=== PATIENT | male | born 2000 | race Hispanic/Latino ===

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

== ENCOUNTER 2021-03-29 22:01 | Emergency (ER) | payer BC, OTHER ==
[~2021-03-29] VITALS: Ht 170.2 cm; Wt 74.8 kg
[~2021-03-29 22:01] MED LIST changes: +AMOX-429 PO; +CIPOTIC AD
[2021-03-30 01:04] LABS: BASOPHILS % (AUTO) 0.7 % (0.0-5.0); EOSINOPHILS % (AUTO) 2.6 % (0.0-8.0); HEMATOCRIT 43.4 % (42-54); LYMPHOCYTES % (AUTO) 40.4 % (21.0-51.0); MEAN CORPUSCULAR HEMOGLOBIN 29.6 pg (27.0-33.0); MEAN CORPUSCULAR HGB CONC 33.6 g/dL (32.0-36.0); MEAN CORPUSCULAR VOLUME 87.9 fL (80-100); MONOCYTES % (AUTO) 7.1 % (3.0-13.0); PLATELET COUNT (AUTO) 244 K/uL (130-400); RED BLOOD CELL COUNT(AUTO) 4.94 MIL/uL (4.50-6.20); WHITE BLOOD COUNT (AUTO) 9.5 K/uL (4.8-10.8)
[2021-03-30 01:17] LABS: CREATININE 1.4 mg/dL (0.5-1.5)
[2021-03-30 01:22] LABS: ALBUMIN 4.1 g/dL (3.5-5.0); BILIRUBIN,TOTAL 0.2 mg/dL (0.2-1.0); TOTAL PROTEIN, SERUM 7.7 g/dL (6.0-8.3)
[2021-03-30] MEDS ORDERED: 0.9% NACL 500ML IV.SOLN 500 ML IV ONE ×2 (01:30→03:00)
[2021-03-30] MEDS ORDERED: IOHEXOL 350 MG/ML 100ML INFUS..BTL IV ONE (01:42)
[2021-03-30] MEDS ORDERED: PROCHLORPERAZINE 10MG/2ML INJ IV ONE (03:00)
[2021-03-30] MEDS ORDERED: KETOROLAC 30MG VIAL (30MG/ML) IV ONE (03:00)
[2021-03-30] MEDS ORDERED: DiphenhydrAMINE HCL 50 MG/ML VIAL IV ONE (03:00)
[2021-03-30] MEDS ORDERED: COMP10 PO (04:24)
[2021-03-30 04:31] VITALS: BP 121/70
== END 2021-03-30 04:38 | disposition home or self-care (01) ==
LOC: EDH 22:22
DX: G44.89 Other headache syndrome (principal); Z79.899 Other long term (current) drug therapy
CPT/HCPCS: 36415; 70470; 80053; 85025; 96374; 96375; 99284; J0780; J1200; J1885; J7040 ×2; Q9967

== ENCOUNTER 2021-08-18 22:29 | Emergency (ER) | payer BC ==
[~2021-08-18] VITALS: Ht 172.7 cm; Wt 80.7 kg
[2021-08-18 22:29] VITALS: BP 114/59
[~2021-08-18 22:29] MED LIST changes: +COMP10 PO
[2021-08-18] MEDS ORDERED: ONDANSETRON 4MG INJ ONE (22:31)
[2021-08-18] MEDS ORDERED: MORPHINE 4 MG SYG ONE (22:31)
[2021-08-18] MEDS ORDERED: LACTATED RINGERS 1000ML 1,000 ML IV ONE (22:34)
[2021-08-18 22:42] LABS: BASOPHILS % (AUTO) 0.6 % (0.0-5.0); EOSINOPHILS % (AUTO) 1.1 % (0.0-8.0); HEMATOCRIT 44.9 % (42-54); LYMPHOCYTES % (AUTO) 33.9 % (21.0-51.0); MEAN CORPUSCULAR HGB CONC 35.6 g/dL (32.0-36.0); MEAN CORPUSCULAR VOLUME 84.1 fL (80-100); MONOCYTES % (AUTO) 7.5 % (3.0-13.0); NEUTROPHILS % (AUTO) 56.7 % (40.0-77.0); PLATELET COUNT (AUTO) 241 K/uL (130-400); RED BLOOD CELL COUNT(AUTO) 5.34 MIL/uL (4.50-6.20); RED CELL DISTRIBUTION WIDTH 12.2 % (11.0-15.5)
[2021-08-18 22:58] LABS: ALBUMIN 4.5 g/dL (3.5-5.0); BILIRUBIN,TOTAL 0.6 mg/dL (0.2-1.0); CREATININE 1.3 mg/dL (0.5-1.5); POTASSIUM 3.3 mmol/L (3.5-5.1); TOTAL PROTEIN, SERUM 8.2 g/dL (6.0-8.3)
[2021-08-18] MEDS ORDERED: DIPH,PERTUSS(ACELL),TET VAC/PF 0.5 ML VIAL IM ONE (23:00)
[2021-08-18] MEDS ORDERED: MORPHINE 4 MG SYG IVP ONE (23:00)
[2021-08-18] MEDS ORDERED: CEFAZOLIN SODIUM 1 GM VIAL IVP SCH (23:00)
[2021-08-18] MEDS ORDERED: TETANUS/DIPHTHERIA TOXOID [ADULT] 0.5 ML VIAL IM ONE (23:55)
[2021-08-19] MEDS ORDERED: HYDROMORPHONE 0.5 MG SYG (0.5MG/0.5ML) ONE (00:06)
[2021-08-19] MEDS ORDERED: ACET-2079 PO (00:33)
[2021-08-19] MEDS ORDERED: CEPH500B PO (00:33)
[2021-08-19] MEDS ORDERED: IBUP-2070 PO (00:33)
== END 2021-08-19 01:39 | disposition home or self-care (01) ==
LOC: EDH 22:29
DX: S62.616B Displaced fracture of proximal phalanx of right little finger, initial encounter for open fracture (principal); S62.614B Displaced fracture of proximal phalanx of right ring finger, initial encounter for open fracture; W34.010A Accidental discharge of airgun, initial encounter; Y93.89 Activity, other specified; Y92.89 Other specified places as the place of occurrence of the external cause; Y99.8 Other external cause status
CPT/HCPCS: 99284; 96374; 96375 ×2; 80053; 85025; 86850; 86900; 86901; 36415; 73130; 12002; 90714; 90471; J7120; J2405; J2270; J0690; J1170; 90715

== ENCOUNTER 2022-01-11 01:49 | Emergency (ER) | payer BC ==
[~2022-01-11] VITALS: Ht 170.2 cm; Wt 70.3 kg
[~2022-01-11 01:49] MED LIST changes: +ACET-2079 PO; +CEPH500B PO; +IBUP-2070 PO
[2022-01-11] MEDS ORDERED: DiphenhydrAMINE HCL 50 MG/ML VIAL IV ONE (02:30)
[2022-01-11] MEDS ORDERED: SOLU-MEDROL 125MG VIAL IVP ONE (02:30)
[2022-01-11] MEDS ORDERED: EPINEPHRINE PF 1MG (1:1,000) 1 MG/ML AMP IM ONE ×2 (02:30→03:30)
[2022-01-11] MEDS ORDERED: FAMOTIDINE 20MG VIAL IV ONE (03:30)
[2022-01-11] MEDS ORDERED: DIPH50 PO (03:31)
[2022-01-11] MEDS ORDERED: PRED20TA3 PO (03:31)
[2022-01-11] MEDS ORDERED: FAMO-136 PO (03:31)
[2022-01-11 04:18] VITALS: BP 131/70
== END 2022-01-11 04:26 | disposition home or self-care (01) ==
LOC: EDH 01:49
DX: T78.40XA Allergy, unspecified, initial encounter (principal); J10.1 Influenza due to other identified influenza virus with other respiratory manifestations; R21 Rash and other nonspecific skin eruption; Z79.52 Long term (current) use of systemic steroids; Z79.899 Other long term (current) drug therapy; Y99.8 Other external cause status
CPT/HCPCS: 99284; 96374; 96375; 96372; J1200; J3490; J2930; J0171 ×2

== ENCOUNTER 2022-04-12 23:11 | Emergency (ER) | payer BC ==
[~2022-04-12] VITALS: Ht 170.2 cm; Wt 73.0 kg
[~2022-04-12 23:11] MED LIST changes: +DIPH50 PO; +FAMO-136 PO; +PRED20TA3 PO
[2022-04-13 00:36] LABS: APPEARANCE,URINE CLEAR (CLEAR); BILIRUBIN,URINE NEGATIVE (NEGATIVE); COLOR,URINE DARK-YELLOW (YELLOW); GLUCOSE, URINE (UA) NEGATIVE (NEGATIVE); KETONES,URINE NEGATIVE (NEGATIVE); LEUKOCYTE ESTERASE ,URINE NEGATIVE Leu/uL (NEGATIVE); NITRATE,URINE NEGATIVE (NEGATIVE); OCCULT BLOOD,URINE NEGATIVE (NEGATIVE); PH,URINE 6.5 (5.0-8.0); PROTEIN,URINE NEGATIVE (NEGATIVE); UROBILINOGEN,URINE 0.2 mg/dL (0.2-1.0)
[2022-04-13 01:13] LABS: BASOPHILS % (AUTO) 0.7 % (0.0-5.0); EOSINOPHILS % (AUTO) 3.8 % (0.0-8.0); HEMATOCRIT 43.7 % (42-54); LYMPHOCYTES % (AUTO) 41.4 % (21.0-51.0); MEAN CORPUSCULAR HEMOGLOBIN 30.6 pg (27.0-33.0); MEAN CORPUSCULAR HGB CONC 34.8 g/dL (32.0-36.0); MEAN CORPUSCULAR VOLUME 87.9 fL (80-100); MONOCYTES % (AUTO) 7.8 % (3.0-13.0); NEUTROPHILS % (AUTO) 46.2 % (40.0-77.0); PLATELET COUNT (AUTO) 208 K/uL (130-400); RED BLOOD CELL COUNT(AUTO) 4.97 MIL/uL (4.50-6.20); RED CELL DISTRIBUTION WIDTH 12.2 % (11.0-15.5); WHITE BLOOD COUNT (AUTO) 8.9 K/uL (4.8-10.8)
[2022-04-13 01:15] LABS: AMPHET/METH SCREEN,URINE NEGATIVE (NEGATIVE); BARBITURATE SCREEN, URINE NEGATIVE (NEGATIVE); BENZODIAZEPINES SCREEN,URINE NEGATIVE (NEGATIVE); CANNABINOID SCREEN,URINE POSITIVE (NEGATIVE); COCAINE SCREEN,URINE NEGATIVE (NEGATIVE); OPIATE SCREEN,URINE NEGATIVE (NEGATIVE); PHENCYCLIDINE SCREEN,URINE NEGATIVE (NEGATIVE)
[2022-04-13 01:20] LABS: CARBON DIOXIDE 29 mmol/L (21-32); CHLORIDE 103 mmol/L (101-111); CREATININE 1.2 mg/dL (0.5-1.5); GLOMERULAR FILTR. RATE CALC 82 mL/min (>60); GLUCOSE,RANDOM 94 mg/dL (70-105); POTASSIUM 3.4 mmol/L (3.5-5.1); SODIUM SERUM 140 mmol/L (136-145); UREA NITROGEN, BLOOD 16 mg/dL (7-18)
[2022-04-13 01:24] LABS: ALANINE AMINOTRANSFERASE 16 U/L (12-78); ALBUMIN 3.9 g/dL (3.5-5.0); ASPARTATE AMINOTRANSFERASE 15 U/L (10-37); LIPASE 77 U/L (114-286); TOTAL PROTEIN, SERUM 7.3 g/dL (6.0-8.3)
[2022-04-13 01:25] LABS: ALCOHOL, BLOOD < 3 mg/dL (0-10)
[2022-04-13] MEDS ORDERED: IBUP-2070 PO (03:58)
[2022-04-13] MEDS ORDERED: KETOROLAC 30MG VIAL (30MG/ML) IVP ONE (04:00)
[2022-04-13 04:15] VITALS: BP 104/57
== END 2022-04-13 04:26 | disposition home or self-care (01) ==
LOC: EDH 23:11
DX: N50.812 Left testicular pain (principal); N50.811 Right testicular pain; R10.2 Pelvic and perineal pain; Z79.52 Long term (current) use of systemic steroids; Z79.1 Long term (current) use of non-steroidal anti-inflammatories (NSAID)
CPT/HCPCS: 99285; 80053; 80305; 83690; 85025; 87797; 87486; 36415; 81003; 74176; 96374; 76870; J1885